=== PATIENT | female | born 1985 | race Caucasian/White ===

== ENCOUNTER 2018-09-19 10:37 | Emergency (ER) | payer SELFPAY ==
--- NOTE | 2018-09-19 10:40 | UC ---
General HPI - HPI Summary HPI Summary: 33 c/o fever, cough since Thursday (today is Thursday). Painful cough, francesco ant chest. No sob / palpitations. Symptoms signficantly worse since yesterday. No GI issues. No rash, although does note an itchy spot on upper L back, last couple weeks. Recently returned from 1 week trip to [place], returned feeling healthy (apprx Aug). No known exposures. - History of Current Complaint Stated Complaint: FLU LIKE SYM[P Time Seen by Provider: 09/19/18 10:39 Hx Obtained From: Patient - Allergy/Home Medications Allergies/Adverse Reactions: Allergies Allergy/AdvReac Type Severity Reaction Status Date / Time No Known Allergies Allergy Verified 09/19/18 10:55 PMH/Surg Hx/FS Hx/Imm Hx Previously Healthy: Yes Review of Systems All Other Systems Reviewed And Are Negative: Yes Constitutional: Positive: Fever, Fatigue Skin: Positive: Other - see hpi Eyes: Positive: Negative ENT: Positive: Nasal Discharge, Other - see hpi Respiratory: Positive: Cough Cardiovascular: Positive: Other - see hpi Gastrointestinal: Positive: Negative Genitourinary: Positive: Negative Motor: Positive: Negative Neurovascular: Positive: Negative Musculoskeletal: Positive: Negative Neurological: Positive: Other Psychological: Positive: Negative Is Patient Immunocompromised?: No Course/Dx - Course Course Of Treatment: Influenza A +. D/w pt. Reviewed coa / tx plan. Questions answered as posed to the best of my ability. Upper back with apprx 1.5cm x 1.0cm plaque, raised/ flaky / red / dry. Rx Lotrisone. D/w pt. - Diagnoses Provider Diagnosis: Influenza, Dermatitis fungal Discharge - Sign-Out/Discharge Documenting (check all that apply): Patient Departure All imaging exams completed and their final reports reviewed: No Studies - Discharge Plan Condition: Stable Disposition: HOME Prescriptions: Clotrimazole/Betamethasone* [Lotrisone Cream*] 1 applic TOPICAL BID 10 Days #1 tube Naproxen [Naproxen 500 mg tab] 500 mg PO BID PRN #30 tablet.dr [place] Reason: Pain Oseltamivir CAP* [Tamiflu CAP*] 75 mg PO BID #10 cap Patient Education Materials: Influenza (ED), Skin Yeast Infection (ED) Forms: *Work Release Referrals: [facility] [place] [facility] [Outside] Additional Instructions: Follow up with primary care physician, routine when able. Seek medical attention for worse or new problems in the meantime. Consider Assistant Inventory Manager if back no better in 7 days, or if worsens. - Billing Disposition and Condition Condition: STABLE Disposition: Home
[2018-09-19 10:58] LABS: Influenza A Molecular POSITIVE (Negative)
[2018-09-19 11:02] VITALS: BP 122/65
== END 2018-09-19 11:30 | disposition home or self-care (01) ==
LOC: UCEAST 10:37
DX: J10.1 Influenza due to other identified influenza virus with other respiratory manifestations (principal); B36.9 Superficial mycosis, unspecified
CPT/HCPCS: 99202; G0463